=== PATIENT | female | born 1950 | race African-American/Black ===

== ENCOUNTER → 2017-04-11 | Outpatient (CLI) | payer MEDICARE, OTHER ==
--- NOTE | 2017-04-11 15:24 | WOMENS IMAGING REPORT ---
EXAM DESCRIPTION: BONE DENSITY HIP/SPINE COMPLETED DATE/TIME: 04/11/2017 3:14 pm REASON FOR STUDY: OSTEOPOROSIS M81.0 AGE-RELATED OSTEOPOROSIS W/O CURRENT PATHOLOGICAL FRAC Z12.31 ENCNTR SCREEN MAMMOGRAM FOR MALIGNANT NEOPLASM OF JANELLE COMPARISON: None. TECHNIQUE: Dual-Energy X-ray Absorptiometry (DEXA) of the AP Spine and Hip. LIMITATIONS: None. FINDINGS: LUMBAR SPINE: The bone mineral density (BMD) measured from L1-L4 in the AP projection correlates with a T-score of -3.1, which is osteoporosis as defined by the World Health Organization. HIP: The bone mineral density (BMD) measured in the left hip correlates with a T-score of -2.3 in the femo ral neck, which is osteopenia as defined by the World Health Organization. IMPRESSION: 1. LUMBAR SPINE: Osteoporosis 2. HIP: Osteopenia COMMENT: The World Health Organization defines low BMD as follows: T-score: Normal: Greater than -1.0 Osteopenia: Between -1.0 and -2.5 Osteoporosis: Less than -2.5 without fractures Established osteoporosis: Less than -2.5 with fractures In general, you may wish to consider: Diagnosis Treatment Follow-up DEXA Normal BMD Prevention 2-3 years Osteopenia Prevention/Therapy 1-2 years Osteoporosis Therapy Yearly TECHNICAL DOCUMENTATION: JOB ID: [id number]- All Rights Reserved
== END ==
LOC: WI 12:53
PROVIDERS: ATTEND Physician Assistant
DX: Z12.31 Encounter for screening mammogram for malignant neoplasm of breast (principal); M81.0 Age-related osteoporosis without current pathological fracture
CPT/HCPCS: 77080; G0202; 77067

== ENCOUNTER → 2020-05-12 | Outpatient (CLI) | payer MEDICARE, OTHER ==
--- NOTE | 2020-05-12 16:00 | WOMENS IMAGING REPORT ---
EXAM DESCRIPTION: 3D DX MAMMO BILAT; U/S BREAST UNILATERAL, COMPL IMAGES COMPLETED DATE/TIME: 05/12/2020 12:50 pm; 05/12/2020 1:14 pm REASON FOR STUDY: D48.61 NEOPLASM OF UNCERTAIN BEHAVIOR OF RIGHT BREAST; RT BREAST D48.61 D48.61 NE OPLASM OF UNCERTAIN BEHAVIOR OF RIGHT BREAST COMPARISON: 04/11/2017 EXAM PARAMETERS: Standard craniocaudal and mediolateral oblique views of each breast recorded using digital acquisition and breast tomosynthesis. Patient presents with a palpable abnormality. An additional full field mediolateral image and spot c ompression images of this region were performed in the CC and MLO projections. Subsequently, targete d sonographic evaluation was performed. Read with the assistance of CAD: .[facility] - [employer] Version 9.2 LIMITATIONS: None. FINDINGS: RIGHT BREAST MASSES: There is a predominantly well-circumscribed focal asymmetry within the right upper outer quad rant which persists on spot compression. This correlates to the patient- identified palpable abnorma lity. Targeted sonographic evaluation reveals a 2.7 x 1.1 x 3.2 cm macro lobular circumscribed hypoe choic focus in perpendicular orientation and demonstrating edge shadowing. Color Doppler interrogati on demonstrates internal vascularity. CALCIFICATIONS: No new or suspicious calcifications. ARCHITECTURAL DISTORTION: None. ASYMMETRY: None noted. OTHER: Targeted sonographic evaluation of the right axilla demonstrates a 1.2 x 0.7 x 1.4 cm lymph no de LEFT BREAST MASSES: No suspicious masses. CALCIFICATIONS: No new or suspicious calcifications. ARCHITECTURAL DISTORTION: None. ASYMMETRY: None noted. OTHER: No other significant finding. IMPRESSION: New right breast mass. BREAST DENSITY: b. There are scattered areas of fibroglandular density. BIRAD: ASSESSMENT: 4 Suspicious. Biopsy should be performed in the absence of clinical contra-indic ation. RECOMMENDATION: RECOMMENDED FOLLOW UP: Birads 4: Biopsy should be performed in the absence of clinic al contraindication. SPECIFIC INTERVENTION/IMAGING/CONSULTATION RECOMMENDED:The suspicious finding(s) amenable to US guide d core/vacuum assisted biopsy. COMMUNICATION:The imaging findings were discussed with the patient. She is aware that imaging guided biopsy has been recommended. Her referring physician has been notified. COMMENT: The patient has been notified of the results by letter per MQSA requirements. Additional no tification policies are in place for contacting patient with suspicious or incomplete findings. Quality ID #225: The [employer] recommends an annual screening mammogram for women aged 40 years or over. This facility utilizes a reminder system to ensure that all patients receive reminder letters, and/or direct phone calls for appointments. This includes reminders for routine scr eening mammograms, diagnostic mammograms, or other Breast Imaging Interventions when appropriate. Th is patient will be placed in the appropriate reminder system. TECHNICAL DOCUMENTATION: FINDING NUMBER: (1) ASSESSMENT: (1) JOB ID: [id number] 2010 [employer]- All Rights Reserved Reading location - IP/workstation name: [email or web address]-
--- NOTE | 2020-05-12 16:00 | WOMENS IMAGING REPORT ---
EXAM DESCRIPTION: 3D DX MAMMO BILAT; U/S BREAST UNILATERAL, COMPL IMAGES COMPLETED DATE/TIME: 05/12/2020 12:50 pm; 05/12/2020 1:14 pm REASON FOR STUDY: D48.61 NEOPLASM OF UNCERTAIN BEHAVIOR OF RIGHT BREAST; RT BREAST D48.61 D48.61 NE OPLASM OF UNCERTAIN BEHAVIOR OF RIGHT BREAST COMPARISON: 04/11/2017 EXAM PARAMETERS: Standard craniocaudal and mediolateral oblique views of each breast recorded using digital acquisition and breast tomosynthesis. Patient presents with a palpable abnormality. An additional full field mediolateral image and spot c ompression images of this region were performed in the CC and MLO projections. Subsequently, targete d sonographic evaluation was performed. Read with the assistance of CAD: .[facility] - [employer] Version 9.2 LIMITATIONS: None. FINDINGS: RIGHT BREAST MASSES: There is a predominantly well-circumscribed focal asymmetry within the right upper outer quad rant which persists on spot compression. This correlates to the patient- identified palpable abnorma lity. Targeted sonographic evaluation reveals a 2.7 x 1.1 x 3.2 cm macro lobular circumscribed hypoe choic focus in perpendicular orientation and demonstrating edge shadowing. Color Doppler interrogati on demonstrates internal vascularity. CALCIFICATIONS: No new or suspicious calcifications. ARCHITECTURAL DISTORTION: None. ASYMMETRY: None noted. OTHER: Targeted sonographic evaluation of the right axilla demonstrates a 1.2 x 0.7 x 1.4 cm lymph no de LEFT BREAST MASSES: No suspicious masses. CALCIFICATIONS: No new or suspicious calcifications. ARCHITECTURAL DISTORTION: None. ASYMMETRY: None noted. OTHER: No other significant finding. IMPRESSION: New right breast mass. BREAST DENSITY: b. There are scattered areas of fibroglandular density. BIRAD: ASSESSMENT: 4 Suspicious. Biopsy should be performed in the absence of clinical contra-indic ation. RECOMMENDATION: RECOMMENDED FOLLOW UP: Birads 4: Biopsy should be performed in the absence of clinic al contraindication. SPECIFIC INTERVENTION/IMAGING/CONSULTATION RECOMMENDED:The suspicious finding(s) amenable to US guide d core/vacuum assisted biopsy. COMMUNICATION:The imaging findings were discussed with the patient. She is aware that imaging guided biopsy has been recommended. Her referring physician has been notified. COMMENT: The patient has been notified of the results by letter per MQSA requirements. Additional no tification policies are in place for contacting patient with suspicious or incomplete findings. Quality ID #225: The [employer] recommends an annual screening mammogram for women aged 40 years or over. This facility utilizes a reminder system to ensure that all patients receive reminder letters, and/or direct phone calls for appointments. This includes reminders for routine scr eening mammograms, diagnostic mammograms, or other Breast Imaging Interventions when appropriate. Th is patient will be placed in the appropriate reminder system. TECHNICAL DOCUMENTATION: FINDING NUMBER: (1) ASSESSMENT: (1) JOB ID: [id number] 2010 [employer]- All Rights Reserved Reading location - IP/workstation name: [email or web address]-
== END ==
LOC: WI 12:22
PROVIDERS: ATTEND Physician Assistant
DX: N63.11 Unspecified lump in the right breast, upper outer quadrant (principal)
CPT/HCPCS: 76641; 77066; G0279; 77062

== ENCOUNTER → 2020-05-26 | Day surgery (SDC) | payer MEDICARE, OTHER ==
[~2020-05-26] MED LIST: LIDOCAINE 2% INJ (20 MG/ML) 20 ML MDV ONE
--- NOTE | 2020-05-30 15:39 | WOMENS IMAGING REPORT ---
EXAM DESCRIPTION: RIGHT DIAGNOSTIC MAMMO W/CAD; U/S BREAST BX IMAGES COMPLETED DATE/TIME: 05/26/2020 1:52 pm; 05/30/2020 2:46 pm REASON FOR STUDY: D48.61 S/P US BX RIGHT BREAST; D48.61 NEOPLASM OF UNCERTAIN BEHAVIOR OF RIGHT [address] D48.61 NEOPLASM OF UNCERTAIN BEHAVIOR OF RIGHT BREAST COMPARISON: 05/12/2020. TECHNIQUE: The procedure was discussed with the patient and the patient agreed to proceed. The patient was scanned and the area of interest in the 10- 11 o'clock position of the right breast w as localized. This correlates with the area of concern on prior imaging studies. This area was targe poncho for ultrasound-guided core biopsy. After sterile skin prep and 10 mL local lidocaine 1 % skin and deep tissue anesthesia, a 14 gauge coa xial core biopsy needle was used to obtain several cores of tissue from the lesion. Under ultrasound guidance, a Ribbon clip was placed in the areas sampled. There were no immediate post-procedure com plications. MAMMOGRAM: Post-procedure two view mammogram was acquired in the digital mammogram suite. The clip wa s in the expected location. No significant hematoma. Pathology yields a diagnosis of poorly differentiated carcinoma, favor invasive ductal. Pathology is concordant. LIMITATIONS: None. FINDINGS: Ultrasound guided breast biopsy as described above. POST PROCEDURE MAMMOGRAMS FOR MARKER PLACEMENT: Yes IMPRESSION: ULTRASOUND-GUIDED CORE BIOPSY OF THE RIGHT BREAST YIELDS A DIAGNOSIS OF POORLY DIFFERENT IATED CARCINOMA, FAVOR INVASIVE DUCTAL. COMMENT: COMMUNICATION: The patient was notified of the findings by the breast imaging care team. Sh e will contact her provider for further treatment planning. Patient medication list reviewed: Yes- Quality ID# [id number]:Eligible professional attests to documenting i n the medical record they obtained, updated, or reviewed the patient's current medications. TECHNICAL DOCUMENTATION: JOB ID: [id number] 2010 [employer]- All Rights Reserved Reading location - IP/workstation name: [email or web address]
== END ==
LOC: WI 12:45
PROVIDERS: ATTEND Physician Assistant
DX: C50.911 Malignant neoplasm of unspecified site of right female breast (principal)
CPT/HCPCS: 88342 ×2; 88341 ×2; 88305 ×2; 88313 ×2; 19083; 77065; J3490

== ENCOUNTER 2020-06-22 08:19 | Day surgery (SDC) | payer MEDICARE, OTHER ==
--- NOTE | 2020-06-16 18:01 | EKG REPORT ---
SEVERITY:- BORDERLINE ECG - SINUS RHYTHM BORDERLINE T ABNORMALITIES, DIFFUSE LEADS : Confirmed by: Edouard Khan MD 16-Jun-2020 18:01:05
[~2020-06-22 08:19] MED LIST changes: +CIPROFLOXACIN 400 MG/D5W RTU 400 MG/200 ML RTUPB IV PRN; +FENTANYL CITRATE INJ/PF 100 MCG/2 ML AMPUL ONE; +LACTATED RINGERS 1000 ML IV PRN; -LIDOCAINE 2% INJ (20 MG/ML) 20 ML MDV ONE; +MIDAZOLAM 2 MG/2 ML INJ ONE; +ONDANSETRON HCL INJ/PF 4 MG/2 ML SDV ONE; +PROPOFOL INJ 200 MG/20 ML VIAL IV ONE
[2020-06-22 09:03] LABS: HEMATOCRIT 37.3 % (36.0-47.0); HEMOGLOBIN 12.6 g/dL (12.0-15.5); MEAN CORPUSCULAR HEMOGLOBIN 30.8 pg (27.0-33.4); MEAN CORPUSCULAR HGB CONC 33.9 g/dL (32.0-36.0); MEAN CORPUSCULAR VOLUME 91 fl (80-97); PLATELET COUNT 253 10^3/uL (150-450); RED CELL DISTRIBUTION WIDTH 13.7 % (11.5-14.0); WHITE BLOOD COUNT 6.1 10^3/uL (4.0-10.5)
[2020-06-22] MEDS ORDERED: LIDOCAINE 1%/EPINEPHRINE INJ 20 ML VIAL ONE (10:04)
[2020-06-22] MEDS ORDERED: CIPROFLOXACIN 400 MG/D5W RTU 400 MG/200 ML RTUPB IV ONE (10:19)
--- NOTE | 2020-06-22 11:13 | Discharge Summary ---
Discharge Summary (SDC) - Discharge Final Diagnosis: Invasive DCIS Date of Surgery: 06/22/20 Discharge Date: 06/22/20 Condition: Good Treatment or Instructions: WOUND CARE: Do not shower for 48 hours. After 48 hours, leave steri strips (Paper bandaids) in place. Allow warm water and soap to wash over wound, do not scrub. Pat area dry. Many patients find it more comfortable to keep gauze and tape over wound. Do not go swimming or take a bath for two weeks. PAIN MANAGEMENT: You may take Toradol 10mg one pill by mouth every six hours as needed for pain. Do not take additional NSAIDs with medication. You may take Tylneol as needed. Resume all home meds. FOLLOW UP: You may follow up at [facility] in 7-10 days. Call clinic sooner with any questions/concerns. Prescriptions: Ketorolac Tromethamine [Toradol 10 mg Tablet] 10 mg PO Q6HP PRN #20 tablet PRN Reason: Referrals: KATHLEEN HALL MD [Primary Care Provider] - Discharge Diet: As Tolerated Discharge Activity: Activity As Tolerated, Balance Activity w/Rest Report the Following to Your Physician Immediately: Increase in Pain, Fever over 101 Degrees, Unusual Bleeding, Redness, Swelling, Warmth, Drainage-Foul Smelling
[2020-06-22] MEDS ORDERED: FENTANYL CITRATE INJ/PF 100 MCG/2 ML AMPUL IV PRN ×3 (11:16)
[2020-06-22] MEDS ORDERED: PROMETHAZINE HCL INJ 25 MG/1 ML VIAL IV PRN ×2 (11:16)
[2020-06-22] MEDS ORDERED: MEPERIDINE HCL/PF INJ 25 MG/1 ML DISP.SYRIN IV PRN (11:16)
[2020-06-22] MEDS ORDERED: DIPHENHYDRAMINE HCL 50 MG/ML VIAL IV PRN (11:16)
--- NOTE | 2020-06-22 13:22 | Operative Report ---
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 Focused ultrasound of the left neck. 2. Present directed insertion of left internal jugular vein catheter, with poor placement of left subclavian position. 3. Interpretation of intraoperative fluoroscopy. SURGEON: JURGEN MINOR ANESTHESIA: LMAC TISSUE REMOVED OR ALTERED: None COMPLICATIONS: None ESTIMATED BLOOD LOSS: Scant INTRAOPERATIVE FINDINGS: Below PROCEDURE: The patient was seen in the preop holding area where the left neck was marked. She was then taken to the main operating room where LMAC anesthesia was induced. Arms were tucked, neck extended, and rotated to the left. The left neck and chest wall prepped draped sterile fashion. Surgical plan and surgical timeout were conducted. Focused ultrasound left neck revealed a compressible, suitable caliber left internal jugular vein appropriate for catheter insertion. Adjacent skin was incised with 1% plain lidocaine. Abdiel made the skin with 11 blade, and using ultrasound as a guide, micro needle and wire threaded the left internal jugular vein. A suitable site for placement of the left Ammtol-b-Wkqt catheter was chosen. Skin was anesthetized 1% plain lidocaine, and a 3 cm transverse incision was made below the left clavicle. A port pocket was developed large enough to accommodate a single-chamber port. The catheter was trimmed the appr opriate length, tunnel between the 2 incisions, attached to the port with the plastic ring of the port tucked into the left subclavian pocket. Under fluoroscopic guidance the micro needle was threaded over to a conventional 0.030 guidewire. Under fluoroscopic guidance, the 9 English dilator and introducer sheath were threaded over the 0.030 inch guidewire. Guidewire and dilator removed, free catheter fragment threaded into the left internal jugular vein via strip away sheath, strip away sheath removed, leaving the tip of the catheter in the superior vena cava at the confluence with the innominate vein. There was no kinking of the catheter by fluoroscopic evaluation. Catheter was aspirated and flushed with heparinized saline, sponge and needle counts are correct, all wounds closed with 3-0 Vicryl benzoin and Steri-Strips. Patient tolerated the procedure well, taken to recovery room in stable condition.
--- NOTE | 2020-06-22 13:46 | RADIOLOGY REPORT (SQ) ---
EXAM DESCRIPTION: FLUORO/CV PLACEMENT IMAGES COMPLETED DATE/TIME: 06/22/2020 1:08 pm REASON FOR STUDY: PORTACATH PLCMT LEFT SIDE ASSISTED WITH FLUORO IN OR C50.919 MALIGNANT NEOPLASM O F UNSP SITE OF UNSPECIFIED FEMAL Z79.01 RETIREMENT (CURRENT) USE OF ANTICOAGULANTS COMPARISON: None. FLUOROSCOPY TIME: 0.4 minutes Spot images saved to PACS. TECHNIQUE: Intra-operative images acquired during surgical procedure to evaluate progress. NUMBER OF IMAGES: 3 LIMITATIONS: None. FINDINGS: Fluoroscopy was provided for intraoperative procedure. Please refer to the operative repo rt for further discussion. IMPRESSION: IMAGE(S) OBTAINED DURING PROCEDURE. COMMENT: Quality ID 145: Final reports for procedures using fluoroscopy that document radiation exp osure indices, or exposure time and number of fluorographic images (if radiation exposure indices are not available) Please consult full operative report of the attending physician for description of the procedure. TECHNICAL DOCUMENTATION: JOB ID: [id number] 2010 [employer]- All Rights Reserved Reading location - IP/workstation name: [email or web address]
[2020-06-22] MEDS ORDERED: PHENYLEPHRINE HCL INJ/PF 10 MG/1 ML SDV ONE (16:10)
[2020-06-22 16:50] VITALS: BP 100/59
--- OUTSIDE RECORDS SUMMARY | 2020-06-23 18:02 | XMS REPORT ---
:1950 Author Organization [facility] Address [facility] [address] [place] [id number] Care Team Providers Name Role Phone Chase Melara Attending Clinician Unavailable Allergies, Adverse Reactions, Alerts Allergy Allergy Status Severity Reaction(s) Onset Inactive Treating C omments Name Type Date Date Clinician Acetaminoph Propensity Active Other (See Out of body en-Codeine to adverse Comments) 12-05 experience reactions 00:00: to drug 00 Penicillins Propensity Active Other (See "out of to adverse Comments) 12-05 bod y reactions 00:00: experi ence to drug 00 " with anything in the cill in family Penicillins Allergy to Active Drug (Finding) Amoxicillin Allergy to Active (Ingredient Drug (s): (Finding) amoxicillin ) Codeine Allergy to Active Sulfate Drug (Ingredient (Finding) (s): codeine) Medications Ordered Filled Start Stop Current Ordering Indication Dosage Frequency Signature Comments Components Medication Medication Date Date Medication? Clinician (SIG) Name Name promethazin Yes [id number] 25mg Q6H Take 25 mg e 4-07 by mouth (PHENERGAN) 00:00: every 6 25 MG 00 (six) tablet hours as needed aspirin 81 Yes [id number] 81mg QD Take 81 mg MG EC 4-03 by mouth tablet 00:00: nightly 00 atorvastati Yes [id number] 10mg QD Take 10 mg n (LIPITOR) 4-03 by mouth 10 MG 00:00: nightly tablet 00 fexofenadin Yes [id number] 60mg QD Take 60 mg e (QUENTIN) 4-03 by mouth 60 MG 00:00: once daily tablet 00 losartan-hy Yes [id number] 1{tbl} QD Take 1 drochloroth 4-03 tablet by iazide 00:00: mouth (HYZAAR) 00 nightly 50-12.5 mg tablet pantoprazol Yes [id number] 20mg QD Take 20 mg e 4-03 by mouth (PROTONIX) 00:00: nightly [address] 00 tablet potassium Yes [id number] 10meq Q.5D Take 10 chloride 4-03 mEq by (KLOR-CON) 00:00: mouth 2 10 MEQ ER 00 (two) tablet times daily zolpidem Yes [id number] 5mg Q24H Take 5 mg (AMBIEN) 5 4-03 by mouth MG tablet 00:00: nightly as 00 needed amLODIPine Yes [id number] 10mg QD Take 10 mg (NORVASC) by mouth 10 MG nightly tablet fluticasone Yes [id number] 2{spray QD Place 2 (FLONASE) } sprays 50 into both mcg/actuati nostrils on nasal once daily spray onabotulinu Yes 155U Q90D 155 Units mtoxin A by XX (BOTOX) 50 route units/mL every 3 injection (three) months multivitami Yes 1{tbl} QD Take 1 n tablet by (MULTIVITAM mouth once IN) tablet daily ascorbic Yes 1000mg QD Take 1,000 acid, mg by vitamin C, mouth once (VITAMIN C) daily 1000 MG tablet omega Yes 2{capsu Q.5D Take 2 3-dha-epa-f le} capsules pramod oil by mouth 2 (FISH OIL) (two) 1,000 mg times (120 mg-180 daily with mg) Cap breakfast and lunch ibuprofen Yes 800mg Q6H Take 800 (ADVIL,MOTR mg by IN) 200 MG mouth tablet every 6 (six) hours as needed for Pain evening Yes 500mg Take 500 primrose mg by oil mouth once (EVENING a week PRIMROSE) 500 mg Cap Quentin Yes 1 Allergy Ambien Yes 1 amLODIPine Yes 1 Besylate Aspirin Yes 1 Atorvastati Yes 1 n Calcium Flonase Yes 1 hydroCHLORO Yes 1 thiazide Losartan Yes 1 Potassium Pantoprazol Yes 1 e Sodium Diclofenac Yes 1 Sodium Jardiance Yes 1 Klor-Con Yes 1 M10 Lexapro Yes 1 Promethazin Yes 1 e HCl Rexulti Yes .5 Trintellix Yes 2 Problems Condition Condition Condition Status Onset Resolution Last Treatin g Comments Name Details Category Date Date Treatment Clinician Date 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 00:00: female female 00 breast breast Osteoporosi Osteoporosi Diagnosis active 2019-08 s s 1-04 00:00: 00 Severe Severe [id number] Active 2017-082018-06-05 episode of episode of 0-25 18:12:43 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:00: 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, disorder, without without psychotic psychotic features features Essential Essential [id number] Active 2017-082018-06-05 hypertensio hypertensio 0- 18:15:07 n n 00:00: 00 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, brittany, 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: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, familial, 00:00: high LDL high LDL 00 Intractable Intractable [id number] Active 2018-06-05 migraine migraine 4-26 18:12:55 without without 00:00: aura and aura and 00 without without status status migrainosus migrainosus Procedures Procedure Date / Time Performed Performing Clinician Devic e wrist surgery 1994-08-12 00:00:00 cholecystectomy 1989-08-12 00:00:00 Results Test Description Test Time Test Comments Text Results Atomic Results Result Comments Glucose 2020-05-25 11:08:03 Test Item Value Reference Range Comments Glucose (test code = Glucose) 117.0000 mg/dL 60.0000-125.0000 BUN (test code = BUN) 15.0000 mg/dL 5.0000-26.0000 Creatinine (test code = Creatinine) 0.7000 mg/dL 0.5000-1.500 0 Cr Clearance (Est) (test code = Cr Clearance 95.0100 75. 0000-115.0000 (Est)) Sodium (test code = Sodium) 138.0000 mmol/L 135.0000-148.0000 Potassium (test code = Potassium) 3.7000 mmol/L 3.5000-5.5000 Chloride (test code = Chloride) 103.0000 mmol/L 96.0000-109.0000 CO2 (test code = CO2) 23.0000 mmol/L 21.0000-32.0000 Calcium (test code = Calcium) 9.7000 mg/dL 8.5000-10.6000 Protein, Total (test code = Protein, Total) 7.5000 g/dL 6.00 00-8.5000 Albumin (test code = Albumin) 4.4000 g/dL 3.5000-4.8000 Globulin (test code = Globulin) 3.1000 g/dL 2.0000-4.5000 Bilirubin, Total (test code = Bilirubin, Total) 0.9000 mg/dL 0.1000-1.2000 Alkaline Phosphatase (test code = Alkaline 75.0000 55.00 00-165.0000 Phosphatase) AST (SGOT) (test code = AST (SGOT)) 47.0000 0.0000-45.00 00 ALT (SGPT) (test code = ALT (SGPT)) 46.0000 0.0000-50.00 00 [id number] 11:08:03 Test Item Value Reference Range Comments WBC (test code = WBC) 6.5000 4.0000-10.5000 HGB (test code = HGB) 13.2000 g/dL 11.5000-15.0000 HCT (test code = HCT) 39.2000 % 34.0000-44.0000 Platelet Count (test code = Platelet Count) 233.0000 140. 0000-415.0000 Encounters Start End Encounter Admission Attending Care Care Encounter Date/Time Date/Time Type Type Clinicians Facility Department ID 2020-06-16 2020-06-16 Outpatient [facility] n [id number] 00:00:00 00:00:00 [facility] Oncology Oncology [facility] 2020-06-15 2020-06-15 Chase Gallegos [facility] 2 [id number] 00:00:00 00:00:00 Arleen Butt [facility] Oncology Oncology [facility] 2020-06-13 2020-06-13 Outpatient [facility] n [id number] 00:00:00 00:00:00 [facility] Oncology Oncology [facility] 2020-06-09 2020-06-09 Outpatient [facility] n [id number] 00:00:00 00:00:00 [facility] Oncology Oncology [facility] 2020-06-03 2020-06-03 Outpatient [facility] n [id number] 00:00:00 00:00:00 [facility] Oncology Oncology [facility] 2020-05-31 2020-05-31 Outpatient [facility] n [id number] 00:00:00 00:00:00 [facility] Oncology Oncology [facility] 2020-05-26 2020-05-26 Outpatient [facility] n [id number] 00:00:00 00:00:00 [facility] Oncology Oncology [facility] 2020-05-25 2020-05-25 Outpatient Jonny Jonny n [id number] 00:00:00 00:00:00 [facility] Oncology Oncology [facility] 2020-05-12 2020-05-12 Outpatient Jonny Jonny n [id number] 00:00:00 00:00:00 [facility] Oncology Oncology [facility] 2017-04-11 2017-04-11 Outpatient Jonny Jonny n [id number] 00:00:00 00:00:00 [facility] Oncology [facility] Family History Family Member Diagnosis Comments Start Date Stop Date Family member Malignant hyperthermia Family member Anesthesia problems Cousin Suicidality Plan of Treatment Planned Activity Planned Date Details Comments Future Scheduled Test [code = ] Future Scheduled Test [code = ] Future Scheduled Test [code = ] Future Scheduled Test [code = ] Future Scheduled Test [code = ] Future Scheduled Test [code = ] Future Scheduled Test [code = ] Future Scheduled Test [code = ] Future Scheduled Test [code = ] Future Scheduled Test [code = ] Social History Social Habit Start Date Stop Date Comments History SDOH Social Connections Meetings History SDOH Social Connections Phone History SDOH Social Connections Get Together History SDOH Social Connections Religion History SDOH Social Connections Membership Alcohol intake 2018-08-11 00:00:00 2018-08-11 00:00:00 History SDOH Social Connections 2018-06-05 00:00:00 2018-06-05 0 0:00:00 Living History SDOH Stress 2018-06-05 00:00:00 2018-06-05 00:00:00 Smoking Status Start Date Stop Date Never 2020-06-15 15:37:49 Social History Observation Description Sex Female Vital Signs Vital Name Observation Time Observation Value Comments Bdy height 2020-06-15 15:37:09 64.0000 [in_i] Heart rate 2020-06-15 15:37:09 85.0000 /min Resp rate 2020-06-15 15:37:09 22.0000 /min BP sys 2020-06-15 15:37:09 129.0000 mm[Hg] Body temperature 2020-06-15 15:37:09 97.2000 [degF] Weight 2020-06-15 15:37:09 180.0000 [lb_av] BMI 2020-06-15 15:37:09 30.9000 BP simmons 2020-06-15 15:37:09 83.0000 mm[Hg] Systolic blood pressure 2018-07-30 10:41:00 152 mm[Hg] Diastolic blood pressure 2018-07-30 10:41:00 87 mm[Hg] Heart rate 2018-07-30 10:41:00 103 /min Body temperature 2018-07-30 10:41:00 36.78 Laura Respiratory rate 2018-07-30 10:41:00 15 /min Oxygen saturation in Arterial blood by 2018-07-30 10:41:00 97 % Pulse oximetry Body height 2018-06-06 07:35:00 162.6 cm Body weight 2018-06-06 07:35:00 78.671 kg BMI 2018-06-06 07:35:00 29.77 kg/m2
== END 2020-06-22 12:38 | disposition home or self-care (01) ==
LOC: OROUT 08:19
PROVIDERS: ATTEND Surgery
DX: C50.811 Malignant neoplasm of overlapping sites of right female breast (principal); Z17.0 Estrogen receptor positive status [ER+]; Z03.818 Encounter for observation for suspected exposure to other biological agents ruled out; E11.9 Type 2 diabetes mellitus without complications; I10 Essential (primary) hypertension; F32.9 Major depressive disorder, single episode, unspecified; Z86.39 Personal history of other endocrine, nutritional and metabolic disease; Z79.01 Long term (current) use of anticoagulants; Z80.3 Family history of malignant neoplasm of breast; Z79.82 Long term (current) use of aspirin; Z79.899 Other long term (current) drug therapy; Z79.84 Long term (current) use of oral hypoglycemic drugs
CPT/HCPCS: 93005; 36415; 82962; 84132; 85027; 77001; 93010; 36561; C1752; C1788; U0003; J2250; J3010; J3490; J2370; J2405; J2704; J0744; J1642; C9803; 532; 87635

== ENCOUNTER → 2020-06-24 | Outpatient (CLI) | payer MEDICARE, OTHER ==
--- NOTE | 2020-06-24 15:02 | RADIOLOGY REPORT (SQ) ---
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 RADIONUCLIDE AND DOSE: 24.9 mCi technetium 99m labeled red blood cells The route of agent administration: Intravenous TECHNIQUE: Following administration of the radionuclide, gated images of the heart are obtained in t hree projections. Left ventricular functional analysis performed. LIMITATIONS: None. FINDINGS: LEFT VENTRICULAR FUNCTION: EJECTION FRACTION: 67%. END-DIASTOLIC VOLUME: 71 mL. END-SYSTOLIC VOLUME: 21 mL. WALL MOTION: No focal wall motion abnormalities. OTHER: No other significant finding. IMPRESSION: NORMAL CARDIAC MUGA STUDY. NORMAL LEFT VENTRICULAR FUNCTION WITH VALUES ABOVE. TECHNICAL DOCUMENTATION: JOB ID: [id number] 2010 [email or web address] Rights Reserved Reading location - IP/workstation name: [email or web address]
== END ==
LOC: RAD 13:43
PROVIDERS: ATTEND Internal Medicine Hematology & Oncology
DX: C50.411 Malignant neoplasm of upper-outer quadrant of right female breast (principal); Z01.89 Encounter for other specified special examinations; Z51.11 Encounter for antineoplastic chemotherapy
CPT/HCPCS: 78472; A9560; Q9969